=== PATIENT | female | born 1935 | race African-American/Black ===

== ENCOUNTER → 2019-12-23 | Day surgery (SDC) | payer MEDICARE, MEDICAID ==
[2019-12-18 08:32] LABS: HEMATOCRIT 40.6 % (37.0-47.0); HEMOGLOBIN 13.7 G/DL (12.0-16.0); MEAN CORPUSCULAR VOLUME 81 FL (80-99); PLATELET COUNT 242 K/UL (150-450); RED CELL DISTRIBUTION WIDTH 11.7 % (11.6-14.8); WHITE BLOOD COUNT 8.2 K/UL (4.8-10.8)
[2019-12-18 08:50] LABS: ANION GAP 9 mmol/L (5-15); BLOOD UREA NITROGEN 14 mg/dL (7-18); CALCIUM 9.1 MG/DL (8.5-10.1); CARBON DIOXIDE 28 MMOL/L (21-32); CHLORIDE 105 MMOL/L (98-107); CREATININE 0.9 MG/DL (0.55-1.30); POTASSIUM 3.9 MMOL/L (3.5-5.1); SODIUM 142 MMOL/L (136-145)
--- NOTE | 2019-12-18 14:03 | Opthalmology H&P ---
Ophthalmology H&P H&P Chief Complaint: decreased vision in right eye HPI Vision Affects Ability to: read, manage personal affairs Past Ocular History: glaucoma HPI Narrative Blurry vision Exam Visual Acuity: OD 20/60 OS Light Perception Tension: OD 21 OS 20 Eye Exam: normal OU: external exam, palpebral fissure-width, marginal reflex distance, levator function, corneas, anterior chambers; findings: lens - NS Cataracts OU, fundus exam - Glaucoma OU Assessment/Plan Treatment Plan: cataract extraction w/ lens implant Goals of Treatment: improvement of vision, enhance quality of life Attestation Attestation The risks and benefits of the surgery as well as alternative procedures were explained to the patient in detail. Rocael Zacarias MD Dec 18, 2019 14:03
--- NOTE | 2019-12-18 14:05 | Pre-Procedure Note/Attestation ---
Pre-Procedure Note/Attestation Complete Prior to Procedure Planned Procedure: right Procedure Narrative: Cataract extraction with intraocular lens implant right eye Indications for Procedure Pre-Operative Diagnosis: Nuclear sclerotic cataract right eye Attestation I attest that I discussed the nature of the procedure; its benefits; risks and complications; and alternatives (and the risks and benefits of such alternatives ), prior to the procedure, with the patient (or the patient's legal auto service representative). I attest that, if there was a reasonable possibility of needing a blood transfusion, the patient (or the patient's legal auto service representative) was given the [facility] standardized written summary, pursuant to the Mustapha Milady Blood Safety Act ([place] Health and Safety Code # 1645, as amended). I attest that I re-evaluated the patient just prior to the surgery and that there has been no change in the patient's H&P, except as documented below: Rocael Zacarias MD Dec 18, 2019 14:05
[~2019-12-23] VITALS: Ht 170.2 cm; Wt 78.0 kg
[2019-12-23] VITALS (10 sets, daily range): BP systolic 132–145; BP diastolic 60–73
[~2019-12-23] MED LIST: Akten 3.5% 1ml Btl LEFT EYE ONE; Akten 3.5% 1ml Btl RIGHT EYE ONE; BSS 15ml BTL ONE; BSS 500ml btl ONE; Bupivacaine 0.75% 30ml vial INJ ONE; Carbachol 0.01% Op Soln 1.5ml vial ONE; Cyclopentolate 1% Opth Sol 2ml LEFT EYE SCH; DIAZEPAM10 MG ORAL; DIPHENHYDRAMINE25 M1 ORAL; EPINEPHrine 1mg/1ml Amp ONE; FERROUS SULFAT325 MG ORAL; FUROSEMIDE40 MG/4 ML IV; GLIPIZIDE5 MG ORAL; LETROZOLE2.5 MG ORAL; LR 1000ml 1,000 ML IVLG SCH; LR 1000ml ONE; Lidocaine 2% MPF 5ml Vial INJ ONE; Lidocaine 4% Amp 5ml ONE; METOPROLOL TART50 M1 ORAL; NIFEDIPINE ER60 M2 ORAL; NS Irrig 1000ml ONE; Phenylephrine 10% Opth Soln 5ml LEFT EYE SCH; Pilocarpine 1% Opth 15ml Soln ONE; Polysporin Oint 15gm TOPIC ONE; Povidone-Iodine 5% opth solution ONE; Proparacaine 0.5% Opth Soln 15ml LEFT EYE ONE; Proparacaine 0.5% Opth Soln 15ml RIGHT EYE ONE; Sodium Hyaluronate 10 mg/ml 0.85ml ONE; Sterile Water Irrig 1000ml IRRIG ONE; Tetracaine 0.5% Opth 4ml Soln LEFT EYE ONE; Tetracaine 0.5% Opth 4ml Soln RIGHT EYE ONE; Tobramycin Op Soln 0.3% 5ml LEFT EYE SCH; Tropicamide 1% Opth 15ml Soln LEFT EYE SCH; acetaZOLAMIDE 500mg Inj ONE; fentaNYL 100 mcg/2 mL IV ONE; fentaNYL 100 mcg/2 mL IV PRN; prednisoLONE acetate 1% Opth Susp 1ml ONE
[2019-12-23] MEDS: Tropicamide 1% Opth 15ml Soln RIGHT EYE SCH ×3 (07:00→07:18)
[2019-12-23] MEDS: Tobramycin Op Soln 0.3% 5ml RIGHT EYE SCH ×3 (07:00→07:18)
[2019-12-23] MEDS: Cyclopentolate 1% Opth Sol 2ml RIGHT EYE SCH ×3 (07:00→07:18)
[2019-12-23] MEDS: Phenylephrine 10% Opth Soln 5ml RIGHT EYE SCH ×3 (07:00→07:18)
--- NOTE | 2019-12-23 09:18 | Anethesia Preoperative Eval ---
Anesthesia Pre-op PMH/ROS General Date of Evaluation: Dec 23, 2019 Time of Evaluation: 08:50 Anesthesiologist: Jaylon ASA Score: ASA 3 Mallampati Score Class I : Soft palate, uvula, fauces, pillars visible Class II: Soft palate, uvula, fauces visible Class III: Soft palate, base of uvula visible Class IV: Only hard plate visible Mallampati Classification: Class II Surgeon: Deann Diagnosis: R eye cataract Surgical Procedure: Cataract extraction Anesthesia History: none Family History: no anesthesia problems Allergies: Coded Allergies: ASPIRIN (Verified Allergy, Unknown, 04/18/19) PENICILLINS (Verified Allergy, Unknown, 04/18/19) Medications: see eMAR Patient NPO?: Yes Past Medical History Cardiovascular: Reports: HTN; Denies: CAD, [place], valve dz, arrhythmia, other Pulmonary: Denies: asthma, COPD, JANNY, other Gastrointestinal/Genitourinary: Reports: GERD; Denies: CRI, ESRD, other Neurologic/Psychiatric: Reports: depression/anxiety; Denies: dementia, CVA, TIA, other Endocrine: Reports: DM - poorly controled on pills; Denies: hypothyroidism, steroids, other HEENT: Reports: cataract (L), cataract (R) Hematology/Immune: Denies: anemia, DVT, bleeding disorder, other Musculoskeletal/Integumentary: Reports: OA PMH Narrative: as above PSxH Narrative: bilateral mastectomy Anesthesia Pre-op Phys. Exam Physician Exam Last Vital Signs Date Time Temp Pulse Resp B/P (MAP) Pulse Ox O2 Delivery O2 Flow Rate FiO2 6/8/20 06:50 97.9 62 18 145/69 98 Room Air Constitutional: NAD Neurologic: CN 2-12 intact Cardiovascular: RRR, no M/R/G Respiratory: CTA Gastrointestinal: S/NT/ND Airway Exam Mallampati Score: Class II MO: limited Neck: stiff ROM: limited Teeth: missing Dentures: no upper, no lower Anesthesia Pre-op A/P Labs see chart Studies Pre-op Studies: EKG - SR Risk Assessment & Plan Assessment: ASA 3 Plan: MAC Status Change Before Surgery: No Pre-Antibiotics Drug: none Bruce Iyer MD Dec 23, 2019 09:18
--- NOTE | 2019-12-23 09:43 | Immediate Post-Op Evaluation ---
Immediate Post-Op Evalulation Immediate Post-Op Evalulation Procedure: R eye cataract extraction with IOL Date of Evaluation: Dec 23, 2019 Time of Evaluation: 09:42 IV Fluids: 200 Blood Products: none Estimated Blood Loss: none Urinary Output: none Blood Pressure Systolic: 146 Blood Pressure Diastolic: 78 Pulse Rate: 64 Respiratory Rate: 20 O2 Sat by Pulse Oximetry: 99 Temperature (Fahrenheit): 98.4 Pain Score (1-10): 1 Nausea: No Vomiting: No Complications none Patient Status: awake, patent, none Hydration Status: adequate Bruce Iyer MD Dec 23, 2019 09:43
--- NOTE | 2019-12-23 10:16 | 48 Hour Post Anesthesia Eval ---
Post Anesthesia Evaluation Procedure: R eye cataract extraction with IOL Date of Evaluation: Dec 23, 2019 Time of Evaluation: 10:15 Blood Pressure Systolic: 136 0: 72 Pulse Rate: 68 Respiratory Rate: 20 Temperature (Fahrenheit): 97.8 O2 Sat by Pulse Oximetry: 99 Airway: patent Nausea: No Vomiting: No Pain Intensity: 1 Hydration Status: adequate Cardiopulmonary Status: stable Mental Status/LOC: patient returned to baseline Follow-up Care/Observations: n/a Post-Anesthesia Complications: none Follow-up care needed: ready to discharge Bruce Iyer MD Dec 23, 2019 10:16
--- NOTE | 2019-12-23 15:03 | Brief Operative Note ---
Immediate Post Operative Note Operative Note Chief Complaint: Blurry vision Pre-op Diagnosis: Nuclear sclerotic cataract right eye Procedure: Cataract extraction with IOL implant right eye Post-op Diagnosis: Pseudophakia OD Findings: consistent w/pre-op dx studies Surgeon: Rocael Zacarias MD Anesthesiologist: Bruce Iyer MD Anesthesia: MAC Specimen: none Complications: none Condition: stable Fluids: LR Estimated Blood Loss: none Drains: none Implant(s) used?: Yes - IOL-OD Rocael Zacarias MD Dec 23, 2019 15:03
--- NOTE | 2019-12-23 15:06 | Operative Note - PDOC ---
Operative Note Operative Note Date of Operation/Procedure: Dec 23, 2019 Chief Complaint: Blurry vision Pre-op Diagnosis: Nuclear sclerotic cataract right eye Procedure: Cataract extraction with IOL implant right eye Post-op Diagnosis: Pseudophakia OD Operative Findings: consistent w/pre-op dx studies Surgeon: Rocael Zacarias MD Anesthesiologist: Bruce Iyer MD Anesthesia: MAC Specimen: none Complications: none Condition: stable Fluids: LR Estimated Blood Loss: none Drains: none Implant(s) used?: Yes - IOL-OD Indications for Procedure Nuclear sclerotic cataract right eye Description of Procedure This patient has been complaining visually significant cataract in the right eye with the best corrected visual acuity of 20/60 under moderate glare conditions worse. The patient complains of difficulties with glare in performing activities of daily living and wants to manage personal affairs with comfort and accuracy and see well enough to move with safety at home and outdoors independently. The risks, benefits and alternatives of the procedure were discussed with the patient in the office prior to scheduling surgery. All questions from the patient were answered after the surgical procedure was explained in detail. The risks of the procedure as explained to the patient include, but are not limited to, pain, infection, bleeding, loss of vision, retinal detachment, need for further surgery, loss of lens nucleus, double vision, etc. Alternative procedures were discussed which include, to do nothing or seek a second opinion. Informed consent for this procedure was obtained from the patient. The patient was referred to a primary care physician for a cardiopulmonary clearance prior to surgery, after proper evaluation was done patient was properly scheduled for outpatient surgery. The patient was brought to the operating room where the anesthesiologist established I.V. lines and cardiac monitoring leads. Mild intravenous sedation was administered. The patient was then prepared with a 5% solution of povidone -iodine to the conjunctival fornix and lashes, and a 5% solution of povidone- iodine to the lids and periorbital skin. The patient was then draped in the usual sterile fashion. A lid speculum was then placed in the operative eye. A keratome blade was then used to create a biplanar incision into the anterior chamber. Viscoelastics was then instilled into the anterior chamber. A capsulorrhexis was then fashioned with an utrata forceps A G 27 cannula was used to hydrodissect and hydro delineate the lens nucleus. Paracentesis incision was made at 3 o'clock with sharp blade. The phacoemulsification unit, after being properly adjusted and tested, was then used to emulsify the nucleus. Residual cortical material was aspirated with the irrigation and aspiration unit. Healon was then instilled into the anterior chamber. The corneal wound was then enlarged to the size of the optic with the dre keratome blade. The intraocular lens was then inspected for right power and size and thought to be satisfactory. Then the lens was gently placed in the capsular bag. Positioning within the capsular bag was confirmed by direct visualization. Optic centration was accomplished with a Sinskey hook. Viscoelastics was removed from the anterior chamber using the irrigation and aspiration unit. The corneal wound was then tested for leaks and none were found. The lid speculum were then removed. Sponge and needle counts were correct. An eye patch and shield were placed over the operative eye. The patient was taken to the recovery room in stable condition. There were no complications. The patient tolerated the procedure well. The patient was then transferred to the ambulatory surgery unit in stable and satisfactory condition , was given detailed written instructions and asked to follow up in the office the next day. Rocael Zacarias MD Dec 23, 2019 15:06
== END | disposition home or self-care (01) ==
LOC: SUR 07:00
DX: H25.11 Age-related nuclear cataract, right eye (principal); H40.9 Unspecified glaucoma; I10 Essential (primary) hypertension; K21.9 Gastro-esophageal reflux disease without esophagitis; E11.9 Type 2 diabetes mellitus without complications; M19.90 Unspecified osteoarthritis, unspecified site; Z90.13 Acquired absence of bilateral breasts and nipples; Z88.0 Allergy status to penicillin; Z88.6 Allergy status to analgesic agent; F41.9 Anxiety disorder, unspecified; F32.9 Major depressive disorder, single episode, unspecified
CPT/HCPCS: 36415; 66984; 80048; 85007; 85025; 85610; 85730; 93005; 94003; J0171; J1100; J2704; J3010; J3370; J7120; V2632; 94150